=== PATIENT | female | born 1935 | race Caucasian/White ===

== ENCOUNTER → 2016-06-22 | Day surgery (SDC) | payer MEDICARE ==
[2016-06-21 08:50] VITALS: BMI 31.3
--- NOTE | 2016-06-21 16:20 | SC.ANESEVA ---
Anesthesia Eval & Plan ([facility]) - Providers Stated Procedure: left hand carpal tunnel and trigger finger Surgeon:: Allen Horton - Medications/Allergies Allergies: Allergies CAM Inhibitors Allergy (Severe, Verified 08/18/14 07:27) Angioedema* codeine [Codeine] Allergy (Verified 08/18/14 07:27) Agitation Home Medications: Home Medication List Famotidine [Acid Controller] 20 mg PO DAILY 06/21/16 [History] Phenazopyridine HCl [Pyridium] 200 mg PO DIR 06/21/16 [History] Current Medication List: Reviewed - Focused Physical Exam NPO since: Since after Midnight Mallampati: Class II Thyromental Distance: Greater than 3 Neck: Limited Range of Motion Dental: Normal - no significant findings Cardiovascular/Chest: Normal (RRR no mumurs or rubs.) Respiratory: Lungs clear. negative: Wheezing Any problems with anesthesia, including nausea and vomiting?: No Any relatives with a history of Malignant Hyperthermia?: No Prone to Motion Sickness: No Other: Diagnoses CARPAL TUNNEL SYNDROME, LEFT UPPER LIMB (06/22/16) TRIGGER FINGER, UNSPECIFIED FINGER (06/22/16) Allergies Allergy/AdvReac Type Severity Reaction Status Date / Time CAM Inhibitors Allergy Severe Angioedema* Verified 08/18/14 07:27 codeine [Codeine] Allergy Agitation Verified 08/18/14 07:27 Home Medications Medication Instructions Recorded Last Taken Type Cholecalciferol (Vitamin D3) 50,000 unit PO .WEEKLY 08/19/12 08/17/14 History [Vitamin D3] Cyclobenzaprine HCl [Flexeril] 5 mg PO HS PRN 08/19/12 08/17/14 History Nabumetone 500 mg PO DAILY 08/19/12 08/12/14 History [place]-3 Fatty Acids [[place]-3] 1,000 mg PO DAILY 08/19/12 08/17/14 History Amlodipine [Norvasc] 5 mg PO DAILY 08/17/14 08/18/14 05:00 History Aspirin [Aspirin EC] 81 mg PO DAILY 08/17/14 08/16/14 History Benazepril HCl [Lotensin] 20 mg PO DAILY 08/17/14 08/18/14 05:00 History Cinnamon Bark [Cinnamon] 500 mg PO DAILY 08/17/14 08/17/14 History Hydrochlorothiazide 12.5 mg PO DAILY 08/17/14 08/18/14 05:00 History Famotidine [Acid Controller] 20 mg PO DAILY 06/21/16 Unknown History Phenazopyridine HCl [Pyridium] 200 mg PO DIR 06/21/16 Unknown History Height and Weight Patient's height 4 ft 11 in Patient's weight 70.307 kg Weight (Calculated Kilograms) 70.307 BMI 31.3 - Anesthetic Plan Anesthesia Type: [facility] ([place]), MAC ASA Class: 3 - Focused Review of Systems Cardiac History: Yes: Hx Hypertension, Hx Cardiac Disorders, Hx Abnormal Cholesterol/Hyperlipidemia HEENT: Yes: Hx Vision Problem (GLASSES), Other HEENT Problems Respiratory: Gastrointestinal: Yes: Hx Gastroesophageal Reflux Disease, Hx Gastrointestinal Disorders, Hx Colonoscopy, Hx Endoscopy Genitourinary: Yes: Hx Renal Disease (reduced kidney function) Neurological/Musculoskeletal: No: Hx Neurological Disorders Blood/Autoimmune: No: Hx Blood Transfusions, Hx AIDS, Hx Hepatitis (type) Smoking Status: Never smoker Surgical History: Yes: T&A, Bladder Tact Other Surgical History: TONSILLECTOMY
[~2016-06-22] MED LIST: BUPIVACAINE 0.25% 30 ML VIAL INF ONE; DEXAMETHASONE 4 MG/ML VIAL IV PRN; DIAZEPAM 5 MG TAB PO PRN; FENTANYL 100 MCG/2 ML VIAL IV PRN; FENTANYL 100 MCG/2 ML VIAL ONE; HYDROCODONE 5 MG/ACETAMIN 325 MG TAB PO PRN; KETOROLAC TROMETH 30 MG/ML VIAL IV PRN; KETOROLAC TROMETH 30 MG/ML VIAL ONE; LABETALOL 20 MG/4 ML SYRINGE IV PRN; LR 1,000 ML IV ONE; LR 1,000 ML IV SCH; MIDAZOLAM 2 MG/2 ML VIAL ONE; NS 1,000 ML IV SCH; NS 250 ML IV SCH; ONDANSETRON HCL 4 MG/2 ML VIAL IV PRN; PROPOFOL 200 MG/20 ML VIAL IV ONE; SCOPOLAMINE TRANSDERMAL PATCH TOP PRN; hydrALAZINE 20 MG/ML VIAL IV PRN
--- NOTE | 2016-06-22 07:12 | HIMOPRPT ---
PREOPERATIVE DIAGNOSES: Left carpal tunnel syndrome; left thumb trigger digit POSTOPERATIVE DIAGNOSES: Same PROCEDURE: 1-Open left carpal tunnel release; 2- open left thumb A1 madeline release. FINDINGS: Thickened transverse carpal ligament with nerve intact. Thickened A1 madeline with degenerative changes involving flexor tendon thumb. SPECIMENS REMOVED: None. ESTIMATED BLOOD LOSS: 1 cc. ANESTHESIA: Pamela block with MAC. COMPLICATIONS: None. TOURNIQUET TIME: 18 minutes at 200 mmHg. IMPLANTS: none SURGEON: Allen Horton MD. MATERIALS DIRECTOR: KATJA Sanchez SIGNIFICANT HISTORY, INDICATIONS, AND CONSENT: Claudia is a 80-year-old right hand dominant female with longstanding history of left carpal tunnel syndrome, confirmed on EMG and nerve conduction study. Patient also has a history of painful triggering of the left thumb recalcitrant to conservative treatment. The patient underwent extensive conservative treatment and after failing this and having continued pain, numbness, weakness, and tingling, wished to proceed with surgical intervention including open carpal tunnel release. The risks, benefits, and alternatives discussed at length to potentially improve numbness, tingling, and pain. OPERATION IN DETAIL:The patient was seen in the preop holding area. The wrist was signed. Consent was reviewed. Questions were answered. H and P updated. SCDs placed on bilateral lower extremities. The patient was taken to the operating room, placed in supine position on the operating table. Anesthesia placed monitoring devices and performed Pamela block with MAC. The left upper extremity was placed on an armboard with the tourniquet on the forearm. Pamela block was performed by the anesthesia service. The patient received prophylactic antibiotics prior to block. Time-out was performed. Consensus reached amongst participants in the OR suite. Next, our incision site was delineated at the radial border of the ring finger, just distal to the distal wrist crease. Sharp dissection was made through skin. Careful dissection bluntly through subcutaneous fat down to the palmar fascia, which was directly incised under direct visualization. Once the transverse carpal ligament was visualized, this was sharply incised carefully and a Ragland elevator was inserted posterior to the transverse carpal ligament, it was released distally and directly onto the Ragland elevator being careful to avoid any iatrogenic injury to the median nerve or palmar branch of the median nerve distally till subcutaneous adipose tissue was visualized in the palm. Next, this process was repeated proximally until the antecubital fascia was reached. After a thorough release, the nerve was carefully inspected and found to be [intact, slightly flattened with the thickened transverse carpal ligament]. No space-occupying lesion was noted. The incision site was then thoroughly irrigated. Next our attention was turned to the A1 madeline of the left thumb. A prominent nodule was palpable. Transverse skin incision was made in line with the flexion crease of the MP joint approximately 1 cm in length. Careful identification of the digital bundles ulnarly and radially were identified and protected. The A1 madeline was then incised sharply and released distally and proximally with a scissor. Once this was performed visualization of the flexor pollicis longus showed some mild degenerative changes which were debrided sharply with a scalpel. Visualization of the tendon flexing revealed no triggering. Incisions were again thoroughly irrigated. Left thumb incision was closed with a 4-0 nylon suture in interrupted fashion. Tourniquet was released. Hemostasis was performed with Bovie cautery. Incision closed with 4-0 nylon suture in an interrupted fashion. Sterile soft tissue dressing was placed. The patient was aroused by anesthesia and taken to the post-anesthesia care unit in stable condition. PLAN: The patient will be discharged home when okay with anesthesia. Prescriptions will be given for p.r.n. pain and constipation. Return to the clinic on postop day #10, early finger and wrist motion, no weightbearing greater than 1-2 pounds.
--- NOTE | 2016-06-22 07:44 | PCM.DCS92 ---
Discharge Outpatient Note - Final/Secondary Discharge Diagnosis (1) Left carpal tunnel syndrome Acute G56.02 - CARPAL TUNNEL SYNDROME, LEFT UPPER LIMB [id number] Physician Follow up/Referrals: Allen Horton MD [Staff Physician] - Listed Time Additional Instructions: Instructions given: 06/22/16 Prescriptions (given at the office) Diet as tolerated Discharge Instructions: Hand Surgery * Apply ice to the surgical site for 15-20 minutes out of each hour while awake for the first 2 days post-op, then apply as often as needed to control swelling and pain. * Keep Bandage clean and dry until after Physical Therapy appointment. * DO NOT lift more than 1-2 lbs with operative hand * Follow up in office as scheduled * Take stool softener while taking pain medication Follow up in office as scheduled - Call office for any additional concerns. ([phone]) Follow up with Physical therapy as scheduled
[2016-06-22 08:03] VITALS: TEMP 97.2
[2016-06-22 08:16] VITALS: BP 113/58; PULSE 71
--- NOTE | 2016-06-22 08:41 | SC.ANESPOS ---
Post-Anesthesia Note LOC: Fully Awake Post-Anesthesia Assessment: Awake, Returned to Baseline, Hemodynamically Stable , Pain Control Adequate Phase I & II Recovery Complete: Yes Apparent Anesthesia Complication: No : N - Vital Signs Blood Pressure: 113/58 Pulse: 71 Resp Rate: 18 O2 Sat: 95 Temp: 97.2 F
== END ==
LOC: CPSC 06:15
PROVIDERS: ATTEND Orthopaedic Surgery
PROC: 0LN80ZZ Release Left Hand Tendon, Open Approach (ICD-10-PCS; 2016-06-22)
PROC: 01N50ZZ Release Median Nerve, Open Approach (ICD-10-PCS; principal; 2016-06-22 07:15)
DX: G56.02 Carpal tunnel syndrome, left upper limb (principal); M65.312 Trigger thumb, left thumb; I12.9 Hypertensive chronic kidney disease with stage 1 through stage 4 chronic kidney disease, or unspecified chronic kidney disease; N18.9 Chronic kidney disease, unspecified; K21.9 Gastro-esophageal reflux disease without esophagitis; E78.00 Pure hypercholesterolemia, unspecified; Z79.899 Other long term (current) drug therapy
CPT/HCPCS: 26055; 64721; J1885; J2250; J2704; J3010; J3490; S0020